=== PATIENT | female | born 1955 | race Caucasian/White ===

== ENCOUNTER → 2016-11-29 | Day surgery (SDC) | payer OTHER ==
[~2016-11-29] MED LIST: LISINOPRIL10 M1 PO; SYNTHROID100 MCG PO
--- NOTE | 2016-11-29 18:24 | History & Physical Pre-Op ---
General Information and HPI History of Present Illness: Patient presents for evaluation of her hernia. She was initially scheduled to be seen 2 weeks from now but developed worsening symptoms over the past few days. She has long-standing epigastric, spontaneous, hernia that has been present since she was in her 20s. It was always reducible. Less than 1 week ago she had a strenuous event caring for her dogs. She noted acute incarceration of the hernia associated with worsening pain. There is no nausea or vomiting. She had an ultrasound performed in our office by one of the radiologic technologist chief that works for her. They felt that it appeared to be a bowel containing hernia. Patient has had a normal appetite with normal bowel function. She has been nothing by mouth since 7:30 this morning. Allergies/Medications Allergies: Coded Allergies: Penicillins (11/29/16) Home Med list Levothyroxine Sodium (Synthroid) 100 MCG TABLET 1 TAB PO DAILY low thyroid ( Reported) Lisinopril 10 MG TABLET 1 TAB PO DAILY htn (Reported) Past History Medical History Cardiovascular: hypertension Endocrine: hypothyroidism Surgical History Pertinent Surgical History: tonsils Past Family/Social History Psychosocial History Smoking Status: Never Smoked ETOH Use: denies use Review of Systems Review of Systems: Patient reports no fatigue, no fever, no night sweats, no significant weight gain, no significant weight loss, and no exercise intolerance. She reports no abnormal moles, no jaundice, no hives, no eczema, and no rashes. She reports no swollen glands and no neck stiffness. She reports no cough, no wheezing, no shortness of breath, and no coughing up blood. She reports no chest pain, no arm pain on exertion, no shortness of breath when walking, no shortness of breath when lying down, no palpitations, and no leg swelling. She reports no abdominal pain, no vomiting, no vomiting blood, normal appetite, no diarrhea, no constipation, no rectal bleeding, and no history of GERD. She reports no incontinence, no difficulty urinating, no hematuria, and no increased frequency. She reports no muscle aches, no muscle weakness, no arthralgias/joint pain, and no back pain. She reports no gynecologic complaints and postmenopausal. Exam & Diagnostic Data Last 24 Hrs of Vital Signs/I&O Wt: 214 lbs Ht: 5 ft 9 in BMI: 31.6 Pulse: 56 bpm BP: 150/96 Physical Exam: Patient is a 61-year-old female. Constitutional: General Appearance: healthy-appearing, well-nourished, and well- developed. Level of Distress: no acute distress. Ambulation: ambulating normally. Head: Head: normocephalic and atraumatic. Cardiovascular: Heart Auscultation: regular rate and rhythm. Lungs: Respiratory effort: no dyspnea. Auscultation: good air movement and no wheezing. Back: Thoracolumbar Appearance: normal curvature. Abdomen: Inspection and Palpation: no tenderness, guarding, masses, rebound tenderness, or CVA tenderness and soft and non-distended. Bowel Sounds: normal. Liver: non-tender and no hepatomegaly. Spleen: non-tender and no splenomegaly. Hernia: ventral (Irreducible spontaneous ventral hernia epigastric region just superior to the umbilicus. The hernia contents measured 3 cm in dimension. There is tenderness and erythema.). Skin: Inspection and palpation: no rash, lesions, ulcer, induration, nodules, jaundice, or abnormal nevi and good turgor. Musculoskeletal:: Extremities: no cyanosis, edema, varicosities, or palpable cord. Motor Strength and Tone: normal tone and motor strength. Joints, Bones, and Muscles: no contractures, malalignment, tenderness, or bony abnormalities and normal movement of all extremities. Psychiatric: Insight: good judgement and insight. Mental Status: normal mood and affect and active and alert. Orientation: to time, place, and person. Memory: recent memory normal and remote memory normal. Assessment/Plan Assessment/Plan: Ventral incisional hernia of anterior abdominal wall without obstruction AND without gangrene - Recommend standard/open repair with mesh emergently. Although she does not have GI disturbance, the incarcerated nature of the hernia combined with erythema over the site is concerning for strangulated contents. Therefore delay should not be undertaken. She is instructed to go to the emergency room for emergent evaluation and prompt repair K43.9: Ventral hernia without obstruction or gangrene Discussion Notes Discussed the pathophysiology of hernias and the need for mesh repair. He understands the permanent nature of mesh. Discussed the risks of surgery including recurrence of the hernia, bleeding and infection. He understands that if mesh infection occurs, removal will necessary. He understands the need for general anesthesia. As Ranked By This Provider Problem List: 1. Ventral hernia with obstruction
[2016-11-29 18:42] LABS: ABSOLUTE BASOPHIL COUNT 0 /CUMM (0.0-0.2); ABSOLUTE EOSINOPHIL COUNT 0.1 /CUMM (0.0-0.7); ABSOLUTE GRANULOCYTE CT 3.7 /CUMM (1.4-6.5); ABSOLUTE LYMPH COUNT 2.9 /CUMM (1.2-3.4); ABSOLUTE MONOCYTE COUNT 0.6 /CUMM (0.10-0.60); BASOPHIL % 0.5 % (0.0-2.0); EOSINOPHIL % 1.6 % (0-5); HEMATOCRIT 39.9 % (37-47); MEAN CORPUSCULAR HGB CONC 32.8 G/DL (33.0-37.0); MEAN CORPUSCULAR VOLUME 85.2 FL (81.0-99.0); MEAN PLATELET VOLUME 9.2 FL (7.4-10.4); PLATELET COUNT 308 /CUMM (130-400); RBC DISTRIBUTION WIDTH 14.2 % (11.5-14.5); RED BLOOD CELL CT 4.68 /CUMM (4.20-5.40); WHITE BLOOD CELL COUNT 7.4 /CUMM (4.8-10.8)
--- NOTE | 2016-11-29 18:53 | RADIOLOGY REPORT ---
EXAMINATION: XR PORTABLE CHEST CLINICAL INFORMATION: 61-year-old female preop for incarcerated hernia. COMPARISON: None TECHNIQUE: Portable AP portable semierect view of the chest was obtained. FINDINGS: No significant abnormality is noted involving the heart, lungs, mediastinum, bony thorax or soft tissues. IMPRESSION: Unremarkable examination.
--- NOTE | 2016-11-29 18:55 | ED GENERAL ADULT ---
History of Present Illness General Chief Complaint: General Adult Stated Complaint: HERNIA Source: patient Exam Limitations: no limitations Vital Signs & Intake/Output Vital Signs & Intake/Output Vital Signs Date Time Temp Pulse Resp B/P Pulse O2 O2 Flow FiO2 Ox Delivery Rate 11/29 1900 99 Room Air 11/29 190 96.0 99 18 149/103 100 Room Air ED Intake and Output 11/30 0000 11/29 1200 Intake Total 0 Output Total Balance 0 Intake, Oral 0 She was treated with IV fluids. 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 The patient states that she's had a hernia in her epigastric region for the last 20 years. Normally it easily reduces. She recalls an event where she was carrying her dog approximately 10 days ago and she strained her abdomen and felt sudden pain. From that point on she said she has had significant pain at the hernia site; this morning it became intensified. She had an ultrasound done at her office which showed a loop of bowel within the hernia. The onset of the symptoms were abrupt, the duration has been approximately 10 days, the severity is significant; as her symptoms required to come to the emergency department for care. The patient was subsequently evaluated by Dr. Janae valdez in his office. He examined her hernia, there is concern incareation and the plan is for her to be taken to the OR. She has no nausea vomiting fever. She reports 2-3 out of 10 pain at this time and declines pain medication. Her last meal was early this morning. She is allergic to penicillin. Past History Medical History Any Pertinent Medical History? see below for history Cardiovascular: hypertension Endocrine: hypothyroidism Surgical History Surgical History: tonsils Psychosocial History ETOH Use: denies use Family History Hx Contributory? No Review of Systems Review of Systems Constitutional: Denies: fever. EENTM: Reports: no symptoms. Respiratory: Reports: no symptoms. Cardiovascular: Reports: no symptoms. GI: Reports: abdominal pain. Denies: vomiting. Genitourinary: Reports: no symptoms. Musculoskeletal: Reports: no symptoms. Skin: Reports: no symptoms. Neurological/Psychological: Reports: no symptoms. Hematologic/Endocrine: Reports: no symptoms. Physical Exam Physical Exam General Appearance: alert, awake, mild distress Head: atraumatic, normal appearance Eyes: Bilateral: normal appearance, PERRL, EOMI. Ears, Nose, Throat: normal ENT inspection Neck: normal inspection Respiratory: no respiratory distress Cardiovascular: regular rate/rhythm Peripheral Pulses: 4+ radial (R), 4+ radial (L) Gastrointestinal: soft, tenderness, hernia Back: normal range of motion Extremities: normal inspection, normal range of motion Neurologic/Psych: no motor/sensory deficits, awake, alert, oriented x 3 Skin: intact, normal color, warm/dry Comments: There is a 1 inch area of tender swelling above and to the right of the umbilicus. It is nonreducible. Core Measures ACS in differential dx? No CVA/TIA Diagnosis: No Severe Sepsis Present: No Septic Shock Present: No Progress Differential Diagnoses I considered the following diagnoses in my evaluation of the patient: [ Incarcerated hernia, strangulated hernia,] Plan of Care: Orders Procedure Date/time Status Add-on Test (ER Only) 11/29 1917 Active Saline Lock 11/29 1915 Active TROPONIN LEVEL 11/29 1904 Complete EKG 11/29 1818 Active Saline Lock 11/29 1811 Active COMPREHENSIVE METABOLIC PANEL 11/29 1811 Complete CBC WITHOUT DIFFERENTIAL 11/29 1811 Complete TYPE & SCREEN (NOT X-MATCH) 11/29 1811 Complete Current Medications Sig/Latosha Start time Last Medication Dose Stop Time Status Admin Levothyroxine Sodium 0.1 MG DAILY AC 11/30 0700 CAN (Synthroid) Sodium Chloride 1,000 ML ONCE ONE 11/29 1914 CAN (Normal Saline 0.9%) 11/30 0154 Laboratory Tests 11/29/161904: Anion Gap 9, Estimated GFR > 60, BUN/Creatinine Ratio 26.3 H, Glucose 79, Calcium 9.2, Total Bilirubin 0.7, AST 25, ALT 32, Alkaline Phosphatase 80, Troponin I < 0.01, Total Protein 6.9, Albumin 4.1, Globulin 2.8, Albumin/ Globulin Ratio 1.5 02/23/17 1826: CBC w Diff NO MAN DIFF REQ, RBC 4.68, MCV 85.2, MCH 28.0, RDW 14.2, MPV 9.2, Gran % 50.0, Lymphocytes % 39.6, Monocytes % 8.3, Eosinophils % 1.6, Basophils % 0.5, Absolute Granulocytes 3.7, Absolute Lymphocytes 2.9, Absolute Monocytes 0.6 , Absolute Eosinophils 0.1, Absolute Basophils 0, PUBS MCHC 32.8 L 11/29/161811: PT Cancelled, INR Cancelled Initial ED EKG: NSR, pvc Departure Departure Disposition: STILL A PATIENT Condition: Stable Clinical Impression Primary Impression: Incarcerated ventral hernia Referrals: ELISABET JOHNSON,NENO (PCP/Family) Departure Forms: Customer Survey General Discharge Information OR/GI Note Spoke With: JANAE JOHNSON,PETE Blanco ED Treatment Decision: SHERI CHAU requires urgent operative management or an emergent procedure that cannot be performed in the Emergency Room setting. Transport To: [facility] Critical Care Note Critical Care Note Critical Care Time: non-applicable
[2016-11-29 19:00] VITALS: BP 149/103
--- NOTE | 2016-11-29 20:45 | Operative Report ---
Operative/Inv Procedure Report Surgery Date: 11/29/16 Name of Procedure: Incarcerated ventral hernia repair with mesh Pre-Operative Diagnosis: Incarcerated ventral hernia Post-Operative Diagnosis: Same Estimated Blood Loss: scant Surgeon/Bodily Injury Adjuster: Donnell Carballo M.D./JERI Shah Anesthesia: laryngeal mask airway Implants: 8 cm ventral X mesh Operative/Procedure Note Note: After consent she is brought to the operating room and laid supine. Gen. anesthesia was obtained and her abdomen was prepped and draped. The skin overlying the irreducible mass was infiltrated with Marcaine. A transverse incision was made over the hernia defect sharply. We came through subcutaneous tissues tissues with cautery and identified the incarcerated contents. It appeared to be omentum. We circumferentially dissected the hernia down to level of the neck and incised that area with cautery. I was then able to reduce the contents back into the peritoneal cavity. Fascial edges were thinned but clean and healthy. The defect was more of a transverse slit, but 2.5 cm open.. The greatest dimension of it was 4 cm, oriented transversely. I elected to repair with preperitoneal ventral X mesh. 8 cm mesh was chosen. Circumferential preperitoneal planes were then created bluntly. The mesh was placed in the cavity and unraveled below the defect. Once I was happy with the placement of mesh the fascia was closed over it in interrupted fashion using 0 Maxon sutures. Subcutaneous tissues were then irrigated normal saline. Incision was then closed in layers of absorbable sutures. Steri-Strips and sterile dressing applied. Sponge and needle counts were correct. CC: ELISABET JOHNSON,NENO
== END ==
LOC: ERH 18:12 → ER-OR 18:17 → ERH 18:17 → STS 19:23 → ER-OR 11-30 09:01 → ERH 11-30 09:01
PROVIDERS: Physician Assistant Medical
DX: K43.6 Other and unspecified ventral hernia with obstruction, without gangrene (principal); I10 Essential (primary) hypertension; E03.9 Hypothyroidism, unspecified
CPT/HCPCS: 93005; 93010; C1781; J0131; J3010